=== PATIENT | male | born 1980 | race Asian ===

== ENCOUNTER 2020-02-09 07:36 | Day surgery (SDC) | payer OTHER ==
[2020-02-09] MEDS ORDERED: PERCOCET 5/325M1 TAB PO (10:06)
[2020-02-09 10:52] VITALS: BP 125/66
== END 2020-02-09 12:50 | disposition home or self-care (01) | DRG 572 ==
LOC: ORM 07:36
PROVIDERS: ATTEND Surgery
PROC: 0HBU0ZZ Excision of Left Breast, Open Approach (ICD-10-PCS; principal; 2020-02-09)
PROC: 0JB80ZZ Excision of Abdomen Subcutaneous Tissue and Fascia, Open Approach (ICD-10-PCS; 2020-02-09)
PROC: 0JBF0ZZ Excision of Left Upper Arm Subcutaneous Tissue and Fascia, Open Approach (ICD-10-PCS; 2020-02-09)
DX: N62 Hypertrophy of breast (principal); D17.1 Benign lipomatous neoplasm of skin and subcutaneous tissue of trunk; D17.22 Benign lipomatous neoplasm of skin and subcutaneous tissue of left arm; Z20.828 Contact with and (suspected) exposure to other viral communicable diseases